=== PATIENT | male | born 1975 | race African-American/Black ===

== ENCOUNTER 2020-04-26 11:18 | Inpatient (IN) | payer MEDICAID ==
[~2020-04-26] VITALS: Ht 175.3 cm; Wt 108.9 kg
[2020-04-26] MEDS ORDERED: MORPHINE SULFATE 4 MG/ML CPJ (NOT FOR IM USE) IV STA (12:59)
[2020-04-26] MEDS ORDERED: SODIUM CHLORIDE 0.9% 1,000 ML IV ONE (12:59)
[2020-04-26] MEDS ORDERED: ONDANSETRON HCL 4MG/2ML INJ IV STA (12:59)
[2020-04-26 13:13] LABS: BASOPHILS % 0.2 % (0.0-2.0); HEMATOCRIT. 52.8 % (42.0-52.0); HEMOGLOBIN. 18.6 g/dL (14.0-18.0); LYMPHOCYTES % 10.6 % (20.0-50.0); MEAN CORPUSCULAR HEMOGLOBIN 32.9 pg (28.0-32.0); MEAN CORPUSCULAR VOLUME 93.4 fL (80.0-94.0); MONOCYTES % 4.6 % (2.0-8.0); NEUTROPHILS % 84.6 % (40.0-76.0); RED BLOOD CELL COUNT 5.65 mill/uL (4.7-6.1); RED CELL DISTRIBUTION WIDTH 14.6 % (11.6-14.6)
[2020-04-26 13:17] LABS: CHLORIDE 100 mEq/L (98-107)
[2020-04-26 13:22] LABS: PARTIAL THROMBOPLASTIN TIME 34.8 sec (23.4-31.0); PROTHROMBIN TIME 11.1 sec (9.6-11.0)
[2020-04-26 14:08] LABS: MEAN PLATELET VOLUME 11.9 fl (7.4-10.4); PLATELET 125 x1000/uL (130-400); PLATELET ESTIMATE SLIGHTLY DECREASED
[2020-04-26] MEDS ORDERED: LEVOFLOXACIN 750MG PREMIX 150 ML IV ONE (16:15)
[2020-04-26] MEDS ORDERED: METRONIDAZOLE 500 MG PREMIX 100 ML IV ONE (16:15)
[2020-04-26] MEDS ORDERED: MORPHINE SULFATE 4 MG/ML CPJ (NOT FOR IM USE) IV ONE (17:00)
[2020-04-26] MEDS ORDERED: ENALAPRIL 1.25 MG in DEXTROSE 5% WATER 49 ML IV PRN (17:00)
[2020-04-26] MEDS ORDERED: DIATR MEGLU/DIATRIZOATE SOLN 30ML ONE (17:26)
[2020-04-26] MEDS: ENOXAPARIN 30MG/0.3ML SYR SUBCUT SCH (18:00)
[2020-04-26] MEDS: DEXT 5%/0.45% NACL 1000ML 1,000 ML IV SCH (19:01)
[2020-04-26] MEDS: ONDANSETRON HCL 4MG/2ML INJ IV PRN (19:02)
[2020-04-26 22:42] VITALS: BP 130/54
[2020-04-26] MEDS ORDERED: SODIUM CHLORIDE 0.9% IV PRN (23:15)
[2020-04-26] MEDS ORDERED: ENALAPRIL IV PRN (23:15)
[2020-04-26] MEDS: MORPHINE SULFATE 2 MG/ML CPJ (NOT FOR IM USE) IV PRN (23:35)
[2020-04-27] VITALS: BP 130/84
[2020-04-27] MEDS: METRONIDAZOLE 500 MG PREMIX 100 ML IV SCH ×4 (00:13→21:16)
[2020-04-27] MEDS: DEXT 5%/0.45% NACL 1000ML 1,000 ML IV SCH ×2 (00:13→21:17)
[2020-04-27 04:00] VITALS: BP_SYST 109; BP_SYST 132; BP_DIAS 72; BP_DIAS 82
[2020-04-27] MEDS: ENOXAPARIN 30MG/0.3ML SYR SUBCUT SCH ×2 (05:39→17:04)
[2020-04-27] MEDS: ONDANSETRON HCL 4MG/2ML INJ IV PRN ×2 (05:39→21:16)
[2020-04-27] MEDS: MORPHINE SULFATE 2 MG/ML CPJ (NOT FOR IM USE) IV PRN ×3 (05:40→20:18)
[2020-04-27 06:54] LABS: BASOPHILS % 0.1 % (0.0-2.0); EOSINOPHILS % 0.2 % (0.0-5.0); HEMATOCRIT. 47.8 % (42.0-52.0); HEMOGLOBIN. 16.5 g/dL (14.0-18.0); LYMPHOCYTES % 15.3 % (20.0-50.0); MEAN CORPUSCULAR HEMOGLOBIN 32.3 pg (28.0-32.0); MEAN CORPUSCULAR VOLUME 93.7 fL (80.0-94.0); MONOCYTES % 8.6 % (2.0-8.0); NEUTROPHILS % 75.8 % (40.0-76.0); RED BLOOD CELL COUNT 5.11 mill/uL (4.7-6.1); RED CELL DISTRIBUTION WIDTH 14.3 % (11.6-14.6)
[2020-04-27 07:28] LABS: CHLORIDE 104 mEq/L (98-107)
[2020-04-27 08:00] VITALS: BP 108/64
[2020-04-27 10:22] LABS: PLATELET 101 x1000/uL (130-400)
[2020-04-27 11:20] LABS: CLARITY URINE CLEAR (CLEAR); COLOR URINE DARK YELLOW (YELLOW); KETONES URINE 1+ (NEGATIVE); LEUKOCYTE ESTERASE URINE TRACE (NEGATIVE); NITRITE URINE NEGATIVE (NEGATIVE); OCCULT BLOOD URINE NEGATIVE (NEGATIVE); PH URINE 5.5 (4.5-8.0); PROTEIN URINE 1+ (NEGATIVE); SPECIFIC GRAVITY URINE 1.033 (1.005-1.030)
[2020-04-27 12:00] VITALS: BP 126/79
[2020-04-27 16:00] VITALS: BP 120/59
[2020-04-27] MEDS: LEVOFLOXACIN 500MG PREMIX 100 ML IV SCH (17:04)
[2020-04-27 20:00] VITALS: BP 107/71
[2020-04-28] VITALS: BP 108/69
[2020-04-28 04:00] VITALS: BP 124/77
[2020-04-28] MEDS: METRONIDAZOLE 500 MG PREMIX 100 ML IV SCH ×3 (05:41→21:52)
[2020-04-28] MEDS: ENOXAPARIN 30MG/0.3ML SYR SUBCUT SCH ×2 (05:48→17:00)
[2020-04-28 08:00] VITALS: BP 112/67
[2020-04-28] MEDS: DEXT 5%/0.45% NACL 1000ML 1,000 ML IV SCH (08:46)
[2020-04-28 12:00] VITALS: BP 135/88
[2020-04-28] MEDS: ONDANSETRON HCL 4MG/2ML INJ IV PRN (12:01)
[2020-04-28] MEDS: HYDROMORPHONE HCL/PF 2MG/ML CPJ IV PRN ×2 (12:02→21:51)
[2020-04-28 16:00] VITALS: BP 110/68
[2020-04-28] MEDS: LEVOFLOXACIN 500MG PREMIX 100 ML IV SCH (16:48)
[2020-04-28 20:00] VITALS: BP_SYST 110; BP_SYST 124; BP_DIAS 76; BP_DIAS 83
[2020-04-29] VITALS: BP 106/63
[2020-04-29 04:00] VITALS: BP 134/84
[2020-04-29] MEDS: DEXT 5%/0.45% NACL 1000ML 1,000 ML IV SCH ×2 (04:54→11:30)
[2020-04-29] MEDS: ENOXAPARIN 30MG/0.3ML SYR SUBCUT SCH ×2 (06:13→17:46)
[2020-04-29] MEDS: METRONIDAZOLE 500 MG PREMIX 100 ML IV SCH ×3 (06:13→22:28)
[2020-04-29 07:16] LABS: BASOPHILS % 0.2 % (0.0-2.0); EOSINOPHILS % 0.4 % (0.0-5.0); HEMATOCRIT. 46.2 % (42.0-52.0); HEMOGLOBIN. 16.1 g/dL (14.0-18.0); LYMPHOCYTES % 15.6 % (20.0-50.0); MEAN CORPUSCULAR HEMOGLOBIN 32.4 pg (28.0-32.0); MEAN CORPUSCULAR VOLUME 92.9 fL (80.0-94.0); MONOCYTES % 12.4 % (2.0-8.0); NEUTROPHILS % 71.4 % (40.0-76.0); RED BLOOD CELL COUNT 4.97 mill/uL (4.7-6.1); RED CELL DISTRIBUTION WIDTH 14.3 % (11.6-14.6)
[2020-04-29 07:25] LABS: CHLORIDE 106 mEq/L (98-107)
[2020-04-29 08:00] VITALS: BP 130/81
[2020-04-29] MEDS: HYDROMORPHONE HCL/PF 2MG/ML CPJ IV PRN ×3 (09:57→22:28)
[2020-04-29 11:31] LABS: MEAN PLATELET VOLUME 11.4 fl (7.4-10.4); PLATELET 103 x1000/uL (130-400)
[2020-04-29 11:58] VITALS: BP 109/68
[2020-04-29 16:00] VITALS: BP 133/91
[2020-04-29] MEDS: LEVOFLOXACIN 500MG PREMIX 100 ML IV SCH (17:46)
[2020-04-29 20:00] VITALS: BP 121/79
[2020-04-30] VITALS: BP 124/77
[2020-04-30] MEDS: DEXT 5%/0.45% NACL 1000ML 1,000 ML IV SCH ×2 (00:35→14:10)
[2020-04-30 04:00] VITALS: BP 137/78
[2020-04-30] MEDS: METRONIDAZOLE 500 MG PREMIX 100 ML IV SCH ×3 (06:39→22:37)
[2020-04-30] MEDS: ENOXAPARIN 30MG/0.3ML SYR SUBCUT SCH ×2 (06:39→17:05)
[2020-04-30 08:00] VITALS: BP 125/69
[2020-04-30] MEDS ORDERED: KETOROLAC 30MG/ML VIAL IV PRN (10:15)
[2020-04-30 12:00] VITALS: BP 100/76
[2020-04-30 16:00] VITALS: BP 145/92
[2020-04-30] MEDS: LEVOFLOXACIN 500MG PREMIX 100 ML IV SCH (17:05)
[2020-04-30] MEDS: HYDROMORPHONE HCL/PF 2MG/ML CPJ IV PRN ×2 (18:19→22:37)
[2020-04-30 20:00] VITALS: BP 108/62
[2020-04-30] MEDS ORDERED: KETOROLAC 15MG/ML VIAL IV PRN (20:45)
[2020-05-01] VITALS: BP 114/81
[2020-05-01] MEDS: DEXT 5%/0.45% NACL 1000ML 1,000 ML IV SCH ×2 (03:35→16:24)
[2020-05-01 04:00] VITALS: BP 118/66
[2020-05-01] MEDS: ENOXAPARIN 30MG/0.3ML SYR SUBCUT SCH ×2 (06:14→17:48)
[2020-05-01] MEDS: HYDROMORPHONE HCL/PF 2MG/ML CPJ IV PRN ×3 (06:14→20:43)
[2020-05-01] MEDS: METRONIDAZOLE 500 MG PREMIX 100 ML IV SCH ×3 (06:15→22:31)
[2020-05-01 08:00] VITALS: BP 123/73
[2020-05-01 12:00] VITALS: BP_SYST 132; BP_SYST 99; BP_DIAS 54; BP_DIAS 73
[2020-05-01] MEDS ORDERED: ACETAMINOPHEN 650MG/20.3ML UDC PO PRN (15:30)
[2020-05-01 16:00] VITALS: BP 111/70
[2020-05-01] MEDS: LEVOFLOXACIN 500MG PREMIX 100 ML IV SCH (17:47)
[2020-05-01 20:00] VITALS: BP 141/93
[2020-05-02] VITALS: BP 126/58
[2020-05-02] MEDS: HYDROMORPHONE HCL/PF 2MG/ML CPJ IV PRN (03:14)
[2020-05-02 04:00] VITALS: BP 115/65
[2020-05-02] MEDS: DEXT 5%/0.45% NACL 1000ML 1,000 ML IV SCH (05:47)
[2020-05-02] MEDS: ENOXAPARIN 30MG/0.3ML SYR SUBCUT SCH ×2 (05:50→18:00)
[2020-05-02 08:00] VITALS: BP 125/80
[2020-05-02 12:00] VITALS: BP 122/80
[2020-05-02] MEDS: KETOROLAC 30MG/ML VIAL IV PRN (13:38)
[2020-05-02 16:00] VITALS: BP_SYST 124; BP_SYST 133; BP_DIAS 74; BP_DIAS 76
[2020-05-02 20:00] VITALS: BP 120/80
[2020-05-03] VITALS: BP 133/69
[2020-05-03 04:00] VITALS: BP 116/84
[2020-05-03] MEDS: ENOXAPARIN 30MG/0.3ML SYR SUBCUT SCH ×2 (05:07→17:36)
[2020-05-03] MEDS: KETOROLAC 30MG/ML VIAL IV PRN (05:19)
[2020-05-03 08:00] VITALS: BP 132/79
[2020-05-03] MEDS: DEXT 5%/0.45% NACL 1000ML 1,000 ML IV SCH (09:05)
[2020-05-03 12:00] VITALS: BP 146/99
[2020-05-03 16:00] VITALS: BP 14/83
[2020-05-03 20:00] VITALS: BP 124/66
[2020-05-04] VITALS: BP 109/71
[2020-05-04] MEDS: KETOROLAC 30MG/ML VIAL IV PRN (02:25)
[2020-05-04 04:00] VITALS: BP 122/79
[2020-05-04] MEDS: ENOXAPARIN 30MG/0.3ML SYR SUBCUT SCH (05:08)
[2020-05-04 08:00] VITALS: BP 131/84
[2020-05-04] MEDS ORDERED: LEVOFLOXACIN 500MG TABLET PO SCH (11:00)
[2020-05-04 12:00] VITALS: BP 119/83
[2020-05-04] MEDS ORDERED: METRONIDAZOLE 500MG TABLET PO SCH (14:00)
== END 2020-05-04 14:25 | disposition home or self-care (01) | DRG 244 ==
LOC: ER 11:18 → MICUSO 16:29 → EDBEDREQTM 16:31 → EDBEDREQ 16:31 → 6EST 22:43
PROVIDERS: ADMIT Hospitalist; ATTEND Hospitalist
DX: K57.32 Diverticulitis of large intestine without perforation or abscess without bleeding (principal); K56.699 Other intestinal obstruction unspecified as to partial versus complete obstruction; F17.200 Nicotine dependence, unspecified, uncomplicated; E86.0 Dehydration
CPT/HCPCS: 36415; 71045; 74018; 74176; 80053; 81003; 83735; 85025; 93005; 96365; 99285; J1170; J1650; J1885; J1956; J2270; J2405; J3490; J7030; Q9963

== ENCOUNTER 2020-06-02 17:10 | Inpatient (IN) | payer MEDICAID ==
[~2020-06-02] VITALS: Ht 175.3 cm; Wt 109.0 kg
[2020-06-02] MEDS ORDERED: ONDANSETRON HCL 4MG/2ML INJ IV STA (17:46)
[2020-06-02] MEDS ORDERED: SODIUM CHLORIDE 0.9% 1,000 ML IV ONE (17:46)
[2020-06-02 18:43] LABS: CHLORIDE 103 mEq/L (98-107)
[2020-06-02 18:47] LABS: HEMOGLOBIN. 19.6 g/dL (14.0-18.0); MEAN CORPUSCULAR HEMOGLOBIN 31.9 pg (28.0-32.0); MEAN CORPUSCULAR VOLUME 92.7 fL (80.0-94.0); MEAN PLATELET VOLUME 11.3 fl (7.4-10.4); PLATELET 127 x1000/uL (130-400); RED BLOOD CELL COUNT 6.15 mill/uL (4.7-6.1); RED CELL DISTRIBUTION WIDTH 14.5 % (11.6-14.6)
[2020-06-02 19:54] LABS: NUCLEATED RED BLOOD CELLS 1 /100 WBC; PLATELET ESTIMATE DECREASED
[2020-06-02 22:18] LABS: CLARITY URINE CLEAR (CLEAR); COLOR URINE DARK YELLOW (YELLOW); KETONES URINE 2+ (NEGATIVE); LEUKOCYTE ESTERASE URINE TRACE (NEGATIVE); NITRITE URINE NEGATIVE (NEGATIVE); OCCULT BLOOD URINE NEGATIVE (NEGATIVE); PROTEIN URINE 1+ (NEGATIVE); SPECIFIC GRAVITY URINE 1.034 (1.005-1.030)
[2020-06-02] MEDS ORDERED: PIPERACILLIN/TAZ 3.375G PREMIX 50 ML IV ONE (22:30)
[2020-06-02] MEDS ORDERED: DEXT 5%/0.45% NACL 1000ML 1,000 ML IV SCH (22:37)
[2020-06-02] MEDS ORDERED: ONDANSETRON HCL 4MG/2ML INJ IV PRN (22:45)
[2020-06-02] MEDS: HYDROMORPHONE HCL/PF 2MG/ML CPJ IV PRN (23:47)
[2020-06-03] MEDS: HYDROMORPHONE HCL/PF 2MG/ML CPJ IV PRN (04:26)
[2020-06-03 05:24] LABS: CHLORIDE 108 mEq/L (98-107)
[2020-06-03 05:28] LABS: BASOPHILS % 0.4 % (0.0-2.0); EOSINOPHILS % 0.7 % (0.0-5.0); HEMATOCRIT. 48.3 % (42.0-52.0); HEMOGLOBIN. 16.6 g/dL (14.0-18.0); LYMPHOCYTES % 33.5 % (20.0-50.0); MEAN CORPUSCULAR VOLUME 93.3 fL (80.0-94.0); NEUTROPHILS % 55.4 % (40.0-76.0); PLATELET 108 x1000/uL (130-400); RED BLOOD CELL COUNT 5.18 mill/uL (4.7-6.1)
[2020-06-03 08:45] VITALS: BP 120/88
[2020-06-03] MEDS ORDERED: PIPERACILLIN/TAZOBACTAM 3.375 G in DEXT 5% WATER 100 ML IV SCH (12:00)
[2020-06-03] MEDS ORDERED: PIPERACILLIN/TAZOBACTAM 3.375 G/VIAL IV SCH (14:00)
== END 2020-06-03 09:23 | disposition left against medical advice (07) | DRG 244 ==
LOC: ER 17:10 → MICUSO 22:31
PROVIDERS: ADMIT Hospitalist; ATTEND Hospitalist
DX: K57.92 Diverticulitis of intestine, part unspecified, without perforation or abscess without bleeding (principal); K56.600 Partial intestinal obstruction, unspecified as to cause; Z53.29 Procedure and treatment not carried out because of patient's decision for other reasons; N17.9 Acute kidney failure, unspecified; I10 Essential (primary) hypertension
CPT/HCPCS: 36415; 71045; 74176; 80053; 81003; 83880; 85025; 99285; J1170; J2405; J2543; J7030; J7060

== ENCOUNTER 2020-06-03 13:36 | Inpatient (IN) | payer MEDICAID ==
[~2020-06-03] VITALS: Ht 175.3 cm; Wt 108.9 kg
[2020-06-03 17:32] LABS: BASOPHILS % 0.4 % (0.0-2.0); EOSINOPHILS % 0.7 % (0.0-5.0); HEMATOCRIT. 48.3 % (42.0-52.0); HEMOGLOBIN. 16.5 g/dL (14.0-18.0); MEAN CORPUSCULAR HEMOGLOBIN 32.1 pg (28.0-32.0); MEAN CORPUSCULAR VOLUME 93.9 fL (80.0-94.0); MEAN PLATELET VOLUME 10.9 fl (7.4-10.4); MONOCYTES % 12.4 % (2.0-8.0); NEUTROPHILS % 49.5 % (40.0-76.0); PLATELET 98 x1000/uL (130-400); RED BLOOD CELL COUNT 5.15 mill/uL (4.7-6.1); RED CELL DISTRIBUTION WIDTH 14.1 % (11.6-14.6)
[2020-06-03 17:38] LABS: CHLORIDE 104 mEq/L (98-107)
[2020-06-03 17:48] LABS: PROTHROMBIN TIME 10.9 sec (9.6-11.0)
[2020-06-03 17:52] LABS: CLARITY URINE CLEAR (CLEAR); COLOR URINE DARK YELLOW (YELLOW); KETONES URINE TRACE (NEGATIVE); LEUKOCYTE ESTERASE URINE TRACE (NEGATIVE); NITRITE URINE NEGATIVE (NEGATIVE); OCCULT BLOOD URINE NEGATIVE (NEGATIVE); PROTEIN URINE NEGATIVE (NEGATIVE); SPECIFIC GRAVITY URINE 1.025 (1.005-1.030)
[2020-06-03] MEDS: SODIUM CHLORIDE 0.9% 1,000 ML IV SCH (19:20)
[2020-06-03] MEDS ORDERED: DOCUSATE SODIUM 100MG CAPSULE PO PRN (19:30)
[2020-06-03] MEDS ORDERED: ZOLPIDEM TARTRATE 5MG TABLET PO PRN (19:30)
[2020-06-03] MEDS ORDERED: IPRATROPIUM/ALBUTEROL 0.5-3(2.5)MG/3ML NEB ORI PRN (19:30)
[2020-06-03] MEDS ORDERED: ACETAMINOPHEN 325MG TABLET PO PRN (19:30)
[2020-06-03] MEDS ORDERED: MAGNESIUM/ALUMINUM HYDROXIDE/SIMETHICONE 30ML UDC PO PRN (19:30)
[2020-06-03] MEDS ORDERED: ACETAMINOPHEN 650MG/20.3ML UDC GT PRN (19:30)
[2020-06-03] MEDS ORDERED: NITROGLYCERIN 0.4MG TABLET SL SL PRN (19:30)
[2020-06-03] MEDS ORDERED: CLONIDINE 0.1MG TABLET PO PRN (19:30)
[2020-06-03 20:00] VITALS: BP 127/77
[2020-06-03] MEDS ORDERED: PIPERACILLIN/TAZ 3.375G PREMIX 50 ML IV SCH (20:30)
[2020-06-03 21:50] VITALS: BP 109/70
[2020-06-03] MEDS: ENOXAPARIN 30MG/0.3ML SYR SUBCUT SCH (21:50)
[2020-06-03] MEDS: ONDANSETRON HCL 4MG/2ML INJ IV PRN (23:21)
[2020-06-03] MEDS: KETOROLAC 15MG/ML VIAL IV PRN (23:21)
[2020-06-04] VITALS: BP 109/70
[2020-06-04] MEDS: KETOROLAC 15MG/ML VIAL IV PRN ×3 (00:48→21:52)
[2020-06-04 04:00] VITALS: BP 114/69
[2020-06-04] MEDS: PIPERACILLIN/TAZOBACTAM 3.375 G in DEXT 5% WATER 100 ML IV SCH ×3 (06:20→18:34)
[2020-06-04] MEDS: SODIUM CHLORIDE 0.9% 1,000 ML IV SCH (06:21)
[2020-06-04 08:00] VITALS: BP 111/63
[2020-06-04] MEDS: ENOXAPARIN 30MG/0.3ML SYR SUBCUT SCH ×2 (09:00→21:00)
[2020-06-04 10:43] LABS: HEMATOCRIT 44.9 % (42.0-52.0); HEMOGLOBIN 15.5 g/dL (14.0-18.0); MEAN CORPUSCULAR HEMOGLOBIN 32.1 pg (28.0-32.0); MEAN CORPUSCULAR VOLUME 92.8 fL (80.0-94.0); PLATELET 94 x1000/uL (130-400); RED BLOOD CELL COUNT 4.84 mill/uL (4.7-6.1); RED CELL DISTRIBUTION WIDTH 14.3 % (11.6-14.6)
[2020-06-04 10:49] LABS: CHLORIDE 109 mEq/L (98-107)
[2020-06-04 20:00] VITALS: BP 119/79
[2020-06-05] VITALS: BP 116/72
[2020-06-05] MEDS: PIPERACILLIN/TAZOBACTAM 3.375 G in DEXT 5% WATER 100 ML IV SCH ×4 (00:31→17:48)
[2020-06-05] MEDS: SODIUM CHLORIDE 0.9% 1,000 ML IV SCH ×2 (00:31→18:00)
[2020-06-05 04:00] VITALS: BP 106/63
[2020-06-05 08:00] VITALS: BP 131/84
[2020-06-05] MEDS: ENOXAPARIN 30MG/0.3ML SYR SUBCUT SCH ×3 (09:00→20:36)
[2020-06-05 12:00] VITALS: BP 132/80
[2020-06-05 16:00] VITALS: BP 128/77
[2020-06-05 20:00] VITALS: BP 121/77
[2020-06-05] MEDS: KETOROLAC 15MG/ML VIAL IV PRN (20:42)
[2020-06-05] MEDS ORDERED: APIX5TAB MT (22:22)
[2020-06-05] MEDS ORDERED: BACL-141 MT (22:22)
[2020-06-05] MEDS ORDERED: PRED-276 MT (22:22)
[2020-06-06] VITALS: BP 119/77
[2020-06-06] MEDS: PIPERACILLIN/TAZOBACTAM 3.375 G in DEXT 5% WATER 100 ML IV SCH ×5 (06:00→18:34)
[2020-06-06] MEDS: SODIUM CHLORIDE 0.9% 1,000 ML IV SCH (07:20)
[2020-06-06 08:00] VITALS: BP 101/63
[2020-06-06] MEDS: ENOXAPARIN 30MG/0.3ML SYR SUBCUT SCH ×2 (09:00→21:00)
[2020-06-06 12:00] VITALS: BP 108/69
[2020-06-06 16:00] VITALS: BP 125/84
[2020-06-06] MEDS: KETOROLAC 15MG/ML VIAL IV PRN (18:52)
[2020-06-06 20:00] VITALS: BP 113/86
[2020-06-07] MEDS: PIPERACILLIN/TAZOBACTAM 3.375 G in DEXT 5% WATER 100 ML IV SCH ×4 (00:07→17:37)
[2020-06-07 00:26] VITALS: BP 113/82
[2020-06-07] MEDS: KETOROLAC 15MG/ML VIAL IV PRN (01:00)
[2020-06-07] MEDS: ONDANSETRON HCL 4MG/2ML INJ IV PRN (01:00)
[2020-06-07 04:00] VITALS: BP 111/64
[2020-06-07 07:19] LABS: BASOPHILS % 0.4 % (0.0-2.0); EOSINOPHILS % 1.2 % (0.0-5.0); HEMATOCRIT. 46.5 % (42.0-52.0); HEMOGLOBIN. 16.2 g/dL (14.0-18.0); LYMPHOCYTES % 34.6 % (20.0-50.0); MEAN CORPUSCULAR HEMOGLOBIN 32.4 pg (28.0-32.0); MEAN CORPUSCULAR VOLUME 92.9 fL (80.0-94.0); MEAN PLATELET VOLUME 11.3 fl (7.4-10.4); MONOCYTES % 10.2 % (2.0-8.0); NEUTROPHILS % 53.6 % (40.0-76.0); PLATELET 95 x1000/uL (130-400); RED BLOOD CELL COUNT 5.01 mill/uL (4.7-6.1); RED CELL DISTRIBUTION WIDTH 14.3 % (11.6-14.6)
[2020-06-07 08:00] VITALS: BP 123/82
[2020-06-07 08:27] LABS: CHLORIDE 107 mEq/L (98-107)
[2020-06-07] MEDS: ENOXAPARIN 30MG/0.3ML SYR SUBCUT SCH ×2 (09:19→21:00)
[2020-06-07] MEDS ORDERED: DIATR MEGLU/DIATRIZOATE SOLN 30ML PO SCH (09:45)
[2020-06-07 12:00] VITALS: BP 126/85
[2020-06-07] MEDS ORDERED: DIATR MEGLU/DIATRIZOATE SOLN 120ML ONE (13:43)
[2020-06-07 16:00] VITALS: BP 147/91
[2020-06-07 20:00] VITALS: BP 131/96
[2020-06-08] VITALS: BP 141/87
[2020-06-08] MEDS: PIPERACILLIN/TAZOBACTAM 3.375 G in DEXT 5% WATER 100 ML IV SCH ×4 (00:47→18:55)
[2020-06-08 04:00] VITALS: BP 108/59
[2020-06-08] MEDS ORDERED: ONDANSETRON HCL 4MG/2ML INJ IV PRN ×2 (06:45→10:00)
[2020-06-08] MEDS ORDERED: MORPHINE SULFATE 2 MG/ML CPJ (NOT FOR IM USE) IV PRN (06:45)
[2020-06-08] MEDS ORDERED: MORPHINE SULFATE 4 MG/ML CPJ (NOT FOR IM USE) IV PRN (06:45)
[2020-06-08] MEDS ORDERED: SKIN ADHESIVE 0.7 GM EA TOP ONE (07:15)
[2020-06-08] MEDS ORDERED: BUPIVACAINE HCL 0.5% (5MG/ML) 50ML ONE (07:15)
[2020-06-08] MEDS ORDERED: MORPHINE SULFATE/PF 1MG/ML 10ML AMP ONE (07:31)
[2020-06-08] MEDS ORDERED: ROCURONIUM BROMIDE 10MG/ML VIAL 5ML IV ONE ×2 (07:36→08:41)
[2020-06-08] MEDS ORDERED: PROPOFOL 200MG/20ML VIAL IV ONE (07:36)
[2020-06-08] MEDS: DEXT 5%/0.45% NACL KCL 20MEQ/L 1,000 ML IV SCH ×2 (08:00→18:55)
[2020-06-08] MEDS: ENOXAPARIN 30MG/0.3ML SYR SUBCUT SCH ×2 (08:17→21:00)
[2020-06-08] MEDS ORDERED: METOPROLOL TARTRATE 5MG/5ML VIAL IV ONE (08:30)
[2020-06-08] MEDS ORDERED: HYDRALAZINE 20MG/ML VIAL ONE (08:37)
[2020-06-08] MEDS ORDERED: ENOXAPARIN 40MG/0.4ML SYR SUBCUT SCH (09:00)
[2020-06-08] MEDS ORDERED: MEPERIDINE HCL/PF 25MG/ML CPJ IV PRN (10:00)
[2020-06-08] MEDS ORDERED: LABETALOL 5MG/ML SYR 20 MG/4 ML SYRINGE IV PRN (10:00)
[2020-06-08] MEDS ORDERED: NEOSTIGMINE METHYLSULFATE 1MG/ML 10 ML VIAL ONE (10:08)
[2020-06-08] MEDS ORDERED: GLYCOPYRROLATE 0.2 MG/ML 2ML VIAL ONE (10:09)
[2020-06-08] MEDS ORDERED: NALOXONE INJ IV PRN (10:30)
[2020-06-08] MEDS ORDERED: DIPHENHYDRAMINE INJ IV PRN (10:30)
[2020-06-08] MEDS ORDERED: HYDROMORPHONE PCA 10MG/50ML IV PRN (10:30)
[2020-06-08] MEDS ORDERED: ONDANSETRON INJ IV PRN (10:30)
[2020-06-08] MEDS: HYDROMORPHONE HCL/PF 2MG/ML CPJ IV PRN ×4 (10:40→11:54)
[2020-06-08] MEDS ORDERED: LABETALOL 5MG/ML SYR 20 MG/4 ML SYRINGE IV SCH (12:45)
[2020-06-08 13:40] VITALS: BP 120/71
[2020-06-08 16:00] VITALS: BP_SYST 107; BP_SYST 132; BP_DIAS 62; BP_DIAS 70
[2020-06-08 20:00] VITALS: BP 118/66
[2020-06-09] VITALS: BP 130/63
[2020-06-09] MEDS: PIPERACILLIN/TAZOBACTAM 3.375 G in DEXT 5% WATER 100 ML IV SCH ×4 (01:19→18:34)
[2020-06-09 04:00] VITALS: BP 115/55
[2020-06-09] MEDS: DEXT 5%/0.45% NACL KCL 20MEQ/L 1,000 ML IV SCH ×2 (04:43→13:33)
[2020-06-09] MEDS ORDERED: IPRATROPIUM/ALBUTEROL 0.5-3(2.5)MG/3ML NEB HHN PRN (07:31)
[2020-06-09 08:00] VITALS: BP 103/62
[2020-06-09] MEDS: ENOXAPARIN 30MG/0.3ML SYR SUBCUT SCH ×2 (09:00→22:24)
[2020-06-09 10:18] LABS: BASOPHILS % 0.4 % (0.0-2.0); EOSINOPHILS % 0.2 % (0.0-5.0); HEMATOCRIT. 39.8 % (42.0-52.0); HEMOGLOBIN. 13.9 g/dL (14.0-18.0); LYMPHOCYTES % 13.9 % (20.0-50.0); MEAN CORPUSCULAR HEMOGLOBIN 32.6 pg (28.0-32.0); MEAN CORPUSCULAR VOLUME 93.4 fL (80.0-94.0); MEAN PLATELET VOLUME 10.7 fl (7.4-10.4); MONOCYTES % 13.4 % (2.0-8.0); NEUTROPHILS % 72.1 % (40.0-76.0); PLATELET 105 x1000/uL (130-400); RED BLOOD CELL COUNT 4.26 mill/uL (4.7-6.1); RED CELL DISTRIBUTION WIDTH 14.1 % (11.6-14.6)
[2020-06-09 10:32] LABS: CHLORIDE 106 mEq/L (98-107)
[2020-06-09 12:00] VITALS: BP 122/72
[2020-06-09 16:00] VITALS: BP 107/68
[2020-06-09 20:00] VITALS: BP 109/71
[2020-06-10] VITALS: BP 113/67
[2020-06-10] MEDS: DEXT 5%/0.45% NACL KCL 20MEQ/L 1,000 ML IV SCH ×3 (01:44→16:20)
[2020-06-10 04:00] VITALS: BP 118/77
[2020-06-10 08:00] VITALS: BP 109/72
[2020-06-10] MEDS: ENOXAPARIN 30MG/0.3ML SYR SUBCUT SCH ×2 (09:24→21:12)
[2020-06-10 12:00] VITALS: BP 129/78
[2020-06-10 16:00] VITALS: BP 116/74
[2020-06-10 20:00] VITALS: BP 134/75
[2020-06-11 00:56] VITALS: BP 130/80
[2020-06-11 04:00] VITALS: BP 121/76
[2020-06-11 08:00] VITALS: BP 119/74
[2020-06-11] MEDS: ENOXAPARIN 30MG/0.3ML SYR SUBCUT SCH ×2 (08:34→20:18)
[2020-06-11] MEDS: DEXT 5%/0.45% NACL KCL 20MEQ/L 1,000 ML IV SCH ×2 (08:42→15:59)
[2020-06-11 12:00] VITALS: BP 114/75
[2020-06-11] MEDS: HYDROCODONE/ACETAMINOPHEN 10/325MG TABLET PO PRN ×2 (15:48→20:20)
[2020-06-11 20:00] VITALS: BP 128/81
[2020-06-11] MEDS: MORPHINE SULFATE 2 MG/ML CPJ (NOT FOR IM USE) IV PRN (22:42)
[2020-06-12] VITALS: BP 125/76
[2020-06-12 04:00] VITALS: BP 135/77
[2020-06-12] MEDS: HYDROCODONE/ACETAMINOPHEN 10/325MG TABLET PO PRN (04:15)
[2020-06-12] MEDS: DEXT 5%/0.45% NACL KCL 20MEQ/L 1,000 ML IV SCH ×3 (04:18→23:38)
[2020-06-12 06:16] LABS: CHLORIDE 104 mEq/L (98-107)
[2020-06-12 06:52] LABS: BASOPHILS % 0.1 % (0.0-2.0); EOSINOPHILS % 0.7 % (0.0-5.0); LYMPHOCYTES % 15.9 % (20.0-50.0); MEAN CORPUSCULAR HEMOGLOBIN 31.6 pg (28.0-32.0); MEAN CORPUSCULAR VOLUME 91.8 fL (80.0-94.0); MEAN PLATELET VOLUME 10.3 fl (7.4-10.4); MONOCYTES % 12.4 % (2.0-8.0); NEUTROPHILS % 70.9 % (40.0-76.0); PLATELET 154 x1000/uL (130-400); RED BLOOD CELL COUNT 3.65 mill/uL (4.7-6.1); RED CELL DISTRIBUTION WIDTH 13.8 % (11.6-14.6)
[2020-06-12 06:56] LABS: HEMOGLOBIN. 11.5 g/dL (14.0-18.0)
[2020-06-12 06:57] LABS: HEMATOCRIT. 33.5 % (42.0-52.0)
[2020-06-12] MEDS: MORPHINE SULFATE 2 MG/ML CPJ (NOT FOR IM USE) IV PRN (06:58)
[2020-06-12 08:00] VITALS: BP 127/79
[2020-06-12] MEDS: ENOXAPARIN 30MG/0.3ML SYR SUBCUT SCH ×2 (08:35→20:58)
[2020-06-12 12:00] VITALS: BP 139/80
[2020-06-12] MEDS: MORPHINE SULFATE 4 MG/ML CPJ (NOT FOR IM USE) IV PRN ×3 (12:35→20:58)
[2020-06-12 16:00] VITALS: BP 127/85
[2020-06-12 20:00] VITALS: BP 125/77
[2020-06-13] VITALS: BP 122/79
[2020-06-13] MEDS: MORPHINE SULFATE 4 MG/ML CPJ (NOT FOR IM USE) IV PRN ×4 (02:16→23:17)
[2020-06-13 04:00] VITALS: BP 118/81
[2020-06-13] MEDS: DEXT 5%/0.45% NACL KCL 20MEQ/L 1,000 ML IV SCH ×3 (07:17→23:17)
[2020-06-13 08:00] VITALS: BP 130/88
[2020-06-13] MEDS: ENOXAPARIN 30MG/0.3ML SYR SUBCUT SCH ×2 (08:19→20:45)
[2020-06-13] MEDS: ONDANSETRON HCL 4MG/2ML INJ IV PRN (10:36)
[2020-06-13 12:00] VITALS: BP 131/89
[2020-06-13 16:00] VITALS: BP 126/81
[2020-06-13 20:00] VITALS: BP 128/79
[2020-06-14] VITALS: BP 121/74
[2020-06-14 04:00] VITALS: BP 128/75
[2020-06-14] MEDS: MORPHINE SULFATE 4 MG/ML CPJ (NOT FOR IM USE) IV PRN ×3 (04:30→22:40)
[2020-06-14] MEDS: DEXT 5%/0.45% NACL KCL 20MEQ/L 1,000 ML IV SCH (07:37)
[2020-06-14 08:00] VITALS: BP 124/76
[2020-06-14] MEDS: HYDROCODONE/ACETAMINOPHEN 10/325MG TABLET PO PRN (08:29)
[2020-06-14] MEDS: ENOXAPARIN 30MG/0.3ML SYR SUBCUT SCH ×2 (08:29→21:16)
[2020-06-14 12:00] VITALS: BP 112/73
[2020-06-14 16:00] VITALS: BP 121/65
[2020-06-14 20:00] VITALS: BP 110/69
[2020-06-14] MEDS: GUAIFENESIN-DM 200MG-20MG/10ML UDC PO PRN (23:19)
[2020-06-15] VITALS: BP 110/72
[2020-06-15 04:00] VITALS: BP 117/64
[2020-06-15] MEDS ORDERED: MORPHINE SULFATE 4 MG/ML CPJ (NOT FOR IM USE) IV PRN (05:23)
[2020-06-15] MEDS: GUAIFENESIN-DM 200MG-20MG/10ML UDC PO PRN (05:34)
[2020-06-15 08:00] VITALS: BP 114/71
[2020-06-15] MEDS: ENOXAPARIN 30MG/0.3ML SYR SUBCUT SCH ×2 (08:26→20:25)
[2020-06-15] MEDS: PIPERACILLIN/TAZOBACTAM 3.375 G in DEXT 5% WATER 100 ML IV SCH ×3 (11:37→22:07)
[2020-06-15] MEDS: HYDROCODONE/ACETAMINOPHEN 10/325MG TABLET PO PRN ×3 (11:38→23:05)
[2020-06-15 12:00] VITALS: BP 130/78
[2020-06-15 15:45] LABS: CLARITY URINE CLEAR (CLEAR); COLOR URINE YELLOW (YELLOW); KETONES URINE TRACE (NEGATIVE); LEUKOCYTE ESTERASE URINE NEGATIVE (NEGATIVE); NITRITE URINE NEGATIVE (NEGATIVE); OCCULT BLOOD URINE NEGATIVE (NEGATIVE); PH URINE 5.5 (4.5-8.0); PROTEIN URINE NEGATIVE (NEGATIVE); SPECIFIC GRAVITY URINE 1.018 (1.005-1.030); UROBILINOGEN URINE 0.2 E.U./dL (0.2-1.0)
[2020-06-15 16:00] VITALS: BP 126/81
[2020-06-15 20:00] VITALS: BP 129/82
[2020-06-16] VITALS: BP 109/72
[2020-06-16 04:00] VITALS: BP 105/68
[2020-06-16] MEDS: PIPERACILLIN/TAZOBACTAM 3.375 G in DEXT 5% WATER 100 ML IV SCH ×4 (04:36→23:49)
[2020-06-16 08:00] VITALS: BP 111/73
[2020-06-16] MEDS: ENOXAPARIN 30MG/0.3ML SYR SUBCUT SCH ×2 (09:30→20:32)
[2020-06-16] MEDS: HYDROCODONE/ACETAMINOPHEN 10/325MG TABLET PO PRN ×3 (09:57→23:57)
[2020-06-16 12:00] VITALS: BP 107/68
[2020-06-16 16:00] VITALS: BP 110/72
[2020-06-16 20:00] VITALS: BP 107/63
[2020-06-17] VITALS: BP 104/70
[2020-06-17] MEDS: PIPERACILLIN/TAZOBACTAM 3.375 G in DEXT 5% WATER 100 ML IV SCH ×2 (06:26→10:55)
[2020-06-17 08:00] VITALS: BP 110/71
[2020-06-17] MEDS: ENOXAPARIN 30MG/0.3ML SYR SUBCUT SCH (08:10)
[2020-06-17 10:05] VITALS: BP 110/71
[2020-06-17 12:00] VITALS: BP 107/66
== END 2020-06-17 13:45 | disposition home or self-care (01) | DRG 230 ==
LOC: ER 13:36 → 6EST 18:35 → EDBEDREQ 18:58 → EDBEDREQSVC 18:58 → ENRESERV 20:42
PROVIDERS: ADMIT Internal Medicine; ATTEND Internal Medicine
PROC: 0D1B0Z4 Bypass Ileum to Cutaneous, Open Approach (ICD-10-PCS; principal; 2020-06-08)
PROC: 0DTG0ZZ Resection of Left Large Intestine, Open Approach (ICD-10-PCS; 2020-06-08)
PROC: 0WQF0ZZ Repair Abdominal Wall, Open Approach (ICD-10-PCS; 2020-06-08)
DX: K57.90 Diverticulosis of intestine, part unspecified, without perforation or abscess without bleeding (principal); E43 Unspecified severe protein-calorie malnutrition; E66.9 Obesity, unspecified; K43.2 Incisional hernia without obstruction or gangrene; R17 Unspecified jaundice; K56.600 Partial intestinal obstruction, unspecified as to cause; K65.9 Peritonitis, unspecified; D64.9 Anemia, unspecified; Z68.35 Body mass index [BMI] 35.0-35.9, adult
CPT/HCPCS: 36415; 71045; 74018; 74176; 80048; 80053; 81003; 83036; 83605; 83735; 84100; 85025; 85027; 87070; 88307; 93970; 97116; 97162; 97166; 97530; 97535; 99285; J0360; J1170; J1650; J1885; J2270; J2274; J2405; J2543; J2704; J2710; J3490; J7060; Q9963